=== PATIENT | female | born 1980 ===

== ENCOUNTER 2023-09-28 09:15 | Inpatient (IN) ==
[2023-09-14 14:09] LABS: Appearance,Urine Clear (Clear); Bilirubin,Urine Negative (Negative); Color,Urine Yellow; Culture Indicated,Urine No; Glucose,Urine (UA) Negative (Negative); Ketones,Urine Negative (Negative); Leukocyte Esterase,Urine Negative /uL (Negative); Nitrate,Urine Negative (Negative); Protein,Urine Negative (Negative); Specific Gravity,Urine 1.015 (1.000-1.035); Urine Blood Trace-intact ery/mcL (Negative); Urine RBC 0 /hpf (0-3); Urine Squamous Epithelial Cell 0 /hpf (0-4); Urine WBC 0 /hpf (0-4); Urobilinogen,Urine Normal
[2023-09-14 14:48] LABS: Blood Urea Nitrogen 13 mg/dL (6-20); Calcium 10.4 mg/dL (8.6-10.4); Carbon Dioxide 27 mmol/L (22-30); Chloride 99 mmol/L (96-108); Glomerular Filtration Rate 110; Glucose 79 mg/dL (70-105)
[2023-09-14 18:32] LABS: Basophils # (Auto) 0.06 K/mcL (0.00-0.30); Basophils % (Auto) 0.5 % (0.0-2.0); Eosinophils % (Auto) 3.5 % (0.0-7.0); Hematocrit 41.5 % (34.1-44.9); Hemoglobin 13.1 g/dL (11.2-15.7); Lymphocytes # (Auto) 3.66 K/mcL (1.50-4.80); Lymphocytes % (Auto) 31.6 % (15.5-49.0); Mean Cell Volume 92.8 fL (80.0-100.0); Mean Corpuscular HGB Conc 31.6 g/dL (31.0-36.0); Mean Platelet Volume 9.5 fL (8.8-12.5); Monocytes # (Auto) 0.76 K/mcL (0.10-0.90); Monocytes % (Auto) 6.6 % (1.0-12.0); Neutrophils % (Auto) 57.6 % (38.0-78.0); Platelet Count 322 K/mcL (140-440); RBC 4.47 M/mcL (3.59-5.38); Red Cell Distribution Width 12.7 % (11.5-14.5); WBC 11.6 K/mcL (4.5-11.0)
[2023-09-28] MEDS ORDERED: IPRATROPIUM/ALBUTEROL 3 ML AMPUL.NEB NEB PRN ×2 (09:30→12:22)
[2023-09-28] MEDS ORDERED: SCOPOLAMINE 1 PATCH PATCH TOPICAL PRN (09:30)
[2023-09-28] MEDS ORDERED: ONDANSETRON 4 MG/2 ML VIAL ONE (10:00)
[2023-09-28] MEDS ORDERED: DEXAMETHASONE 10 MG/ML VIAL ONE (10:00)
[2023-09-28] MEDS ORDERED: PROPOFOL 200 MG/20 ML VIAL IV ONE ×3 (10:00→11:58)
[2023-09-28] MEDS ORDERED: GLYCOPYRROLATE 0.2 MG/ML VIAL IV ONE (10:00)
[2023-09-28] MEDS ORDERED: TRANEXAMIC ACID 1,000 MG/10 ML VIAL ONE (10:03)
[2023-09-28] MEDS ORDERED: MIDAZOLAM 2 MG/2 ML VIAL ONE (11:07)
[2023-09-28] MEDS: ceFAZolin 2 GM in DEXTROSE 5% IN WATER 50 ML IV SCH (11:45)
[2023-09-28] MEDS ORDERED: MAGNESIUM SULFATE 2 GM/50 ML BAG IV ONE (11:51)
[2023-09-28] MEDS ORDERED: DEXMEDETOMIDINE HCL 200 MCG/2 ML VIAL ONE (12:10)
[2023-09-28] MEDS ORDERED: ONDANSETRON 4 MG/2 ML VIAL IV PRN (12:22)
[2023-09-28] MEDS: 0.9 % SODIUM CHLORIDE 9 ML, KETOROLAC 30 MG, ROPIVACAINE HCL/PF 49.5 ML, EPINEPHrine 0.... IJ SCH (12:31)
[2023-09-28] MEDS ORDERED: MAGNESIUM HYDROXIDE 30 ML ORAL.SUSP PO PRN (12:35)
[2023-09-28] MEDS ORDERED: ACETAMINOPHEN 325 MG TABLET PO PRN (12:35)
[2023-09-28] MEDS ORDERED: POLYETHYLENE GLYCOL 3350 17 GM PACKET PO PRN (12:35)
[2023-09-28] MEDS ORDERED: BENZOCAINE/MENTHOL 1 LOZENGE PO PRN (12:35)
[2023-09-28] MEDS ORDERED: TEMAZEPAM 15 MG CAPSULE PO PRN (12:35)
[2023-09-28] MEDS ORDERED: FLEETS ADULT 1 DOSE ENEMA PR PRN (12:35)
[2023-09-28] MEDS ORDERED: BISACODYL 10 MG SUPP.RECT PR PRN (12:35)
[2023-09-28] MEDS: TRANEXAMIC ACID 1,000 MG/10 ML VIAL IV SCH (12:57)
[2023-09-28] MEDS ORDERED: fentaNYL 100 MCG/2 ML VIAL IV PRN (12:58)
[2023-09-28] MEDS: MEPERIDINE 25 MG/ML VIAL IV ONE (13:08)
[2023-09-28] MEDS ORDERED: ROPIVACAINE HCL/PF 30 ML VIAL IJ ONE (13:11)
[2023-09-28] MEDS: PREGABALIN 75 MG CAPSULE PO SCH (13:41)
[2023-09-28] MEDS: CELECOXIB 200 MG CAPSULE PO SCH (13:41)
[2023-09-28] MEDS: oxyCODONE 10 MG TAB.ER.12H PO SCH (13:43)
[2023-09-28] MEDS: ACETAMINOPHEN 500 MG TABLET PO SCH (13:44)
[2023-09-28] MEDS: HYDROmorphone 1 MG/ML SYRINGE IV PRN (13:50)
[2023-09-28] MEDS: 0.45 % SODIUM CHLORIDE 1,000 ML IV SCH (14:02)
[2023-09-28] MEDS: 0.9 % SODIUM CHLORIDE 10 ML SYRINGE IV SCH (14:03)
[2023-09-28] MEDS: HYDROcodone/APAP 10/325MG TABLET PO PRN (14:18)
[2023-09-28] MEDS: 0.9 % SODIUM CHLORIDE 250 ML IV SCH (14:31)
[2023-09-28] MEDS: LACTATED RINGERS 1,000 ML IV SCH (14:32)
[2023-09-28] MEDS: SCOPOLAMINE 1 PATCH PATCH TOPICAL ONE (14:32)
[2023-09-28] MEDS: KETOROLAC 15 MG/ML VIAL IV SCH (17:53)
[2023-09-28] MEDS: LISINOPRIL 20 MG TABLET PO SCH (20:27)
[2023-09-28] MEDS: ASPIRIN 81 MG TAB.CHEW PO SCH (20:27)
[2023-09-28] MEDS: SENNOSIDES 1 TABLET PO SCH (20:31)
[2023-09-28] MEDS: DOCUSATE SODIUM 100 MG CAPSULE PO SCH (20:32)
[2023-09-28] MEDS: ceFAZolin 1 GM VIAL IV SCH (20:33)
[2023-09-29] MEDS: ONDANSETRON 4 MG/2 ML VIAL IV PRN (01:51)
[2023-09-29] MEDS: MAGNESIUM OXIDE 400 MG TABLET PO SCH (09:19)
[2023-09-29] MEDS: CHLORTHALIDONE 25 MG TABLET PO SCH (09:26)
== END 2023-09-29 11:25 | disposition home or self-care (01) | DRG 489 ==
LOC: MEDSUR 09:21 → EDSTATUS 12:45
PROVIDERS: ADMIT Orthopaedic Surgery; ATTEND Orthopaedic Surgery